=== PATIENT | female | born 1960 | race Caucasian/White ===

== ENCOUNTER → 2021-11-16 | Outpatient (CLI) | payer BC | LOC: KOH-I 13:40 | DX: M79.671 Pain in right foot (principal); M19.071 Primary osteoarthritis, right ankle and foot | CPT/HCPCS: 73630 ==

== ENCOUNTER → 2021-11-23 | Outpatient (CLI) | payer BC | LOC: KOH-I 10:59 | DX: S86.011A Strain of right Achilles tendon, initial encounter (principal); M77.9 Enthesopathy, unspecified | CPT/HCPCS: 73721 ==

== ENCOUNTER → 2022-01-19 | Outpatient (CLI) | payer BC ==
[~2022-01-19] MED LIST: CENTRUM COMPLE1 EACH PO; LISINOPRIL-HCT1 EAC1 PO; MAGNESIUM; PROTONIX40 MG PO; TRULICITY0.75 MG/0. SQ; VITAMIN B COMP1 EAC1 PO; VITAMIN D 3
== END ==
LOC: US 13:58
DX: Z01.810 Encounter for preprocedural cardiovascular examination (principal); E11.9 Type 2 diabetes mellitus without complications
CPT/HCPCS: 93926

== ENCOUNTER → 2022-01-21 | Outpatient (CLI) | payer BC ==
[2022-01-21 11:19] LABS: RED BLOOD COUNT 5.26 M/UL (4.00-5.10); WHITE BLOOD COUNT 6.9 K/UL (4.5-11.0)
== END ==
LOC: OPSV2 10:00
PROVIDERS: Podiatrist Foot & Ankle Surgery
DX: Z01.818 Encounter for other preprocedural examination (principal); S86.011A Strain of right Achilles tendon, initial encounter
CPT/HCPCS: 36415; 80048; 85027; 93005

== ENCOUNTER → 2022-01-27 | Day surgery (SDC) | payer BC ==
[~2022-01-27] VITALS: Ht 154.9 cm; Wt 70.8 kg
[~2022-01-27] MED LIST changes: -MAGNESIUM; +MAGNESIUM PO; -VITAMIN D 3; +VITAMIN D 3 PO
== END | disposition home or self-care (01) ==
LOC: OR 05:54
DX: S92.141A Displaced dome fracture of right talus, initial encounter for closed fracture (principal); S92.001A Unspecified fracture of right calcaneus, initial encounter for closed fracture; M21.6X1 Other acquired deformities of right foot; M24.9 Joint derangement, unspecified; M89.9 Disorder of bone, unspecified; G89.29 Other chronic pain; M65.9 Synovitis and tenosynovitis, unspecified; E11.9 Type 2 diabetes mellitus without complications; I10 Essential (primary) hypertension; Z88.5 Allergy status to narcotic agent; Z79.84 Long term (current) use of oral hypoglycemic drugs; Z79.899 Other long term (current) drug therapy; X58.XXXA Exposure to other specified factors, initial encounter
CPT/HCPCS: 0707T; 15271; 27650; 27687; 28119; 29892; 29895; 73610; 76000; 82962; C1713; J0171; J0690; J1170; J1885; J2001; J2250; J2370; J2405; J2704; J2795; J3010; J3370; Q4133; Q9967

== ENCOUNTER → 2022-03-09 | Outpatient (CLI) | payer BC | LOC: EXRD 12:43 | DX: I82.409 Acute embolism and thrombosis of unspecified deep veins of unspecified lower extremity (principal) | CPT/HCPCS: 93971 ==